=== PATIENT | male | born 1955 | race African-American/Black ===

== ENCOUNTER → 2017-03-17 | Outpatient (CLI) | payer BC, OTHER | LOC: CAT 09:24 | DX: K40.90 Unilateral inguinal hernia, without obstruction or gangrene, not specified as recurrent (principal) ==

== ENCOUNTER → 2020-01-31 | Outpatient (CLI) | payer BC, OTHER | LOC: LAB 08:35 | PROVIDERS: ATTEND Family Medicine | DX: R05 Cough (principal); Z20.828 Contact with and (suspected) exposure to other viral communicable diseases ==

== ENCOUNTER → 2020-04-28 | Outpatient (CLI) | payer BC, OTHER | LOC: LAB 08:50 | PROVIDERS: ATTEND Family Medicine | DX: U07.1 COVID-19 (principal) ==

== ENCOUNTER → 2020-05-14 | Outpatient (CLI) | payer BC, OTHER | LOC: LAB 07:22 | PROVIDERS: ATTEND Family Medicine | DX: U07.1 COVID-19 (principal) ==

== ENCOUNTER 2021-06-29 06:39 | Observation (INO) | payer BC, OTHER ==
[~2021-06-29] VITALS: Ht 180.3 cm; Wt 97.1 kg
[~2021-06-29 06:39] MED LIST: AMLODIPINE BESY10 MG PO; APPLE CIDER VI500 MG PO; ASA81BEC PO; ATORVASTATIN CA20 MG PO; CINNAMON500 MG PO; METOPROLOL SUCC50 MG PO; MULTI VITAMIN1 EACH PO; TURMERIC500 M2 PO; VITAMIN D3250 MC2 PO; ZOLPIDEM TARTRA10 MG PO
[2021-06-29 09:00] VITALS: BP 170/95
[2021-06-29] MEDS ORDERED: HYDROCODON-ACE1 EAC7 PO (11:30)
[2021-06-29 14:11] VITALS: BP 145/84
--- NOTE | 2021-06-29 14:34 | NUR ---
ASSUMED PT CARE FROM PACU AT 1405. PT IS ALERT & ORIENTED X4. PT HAS IV SITE ON R HAND. PT IS ON ROOM AIR. PT IS ACCUCHECK ACHS. PT IS STAND BY TO THE BATHROOM. FINISHED ADMISSION. PT HAS BANDAIDS X3 ON THE ABDOMEN C/D/I. PT ON THE BED, BED ON THE LOWEST POSITION, SIDE RAILS UP, CALL LIGHT WITHIN REACH. WILL CONTINUE TO MONITOR PT. FOLLOW POC.
[2021-06-29 19:08] VITALS: BP 144/85
--- NOTE | 2021-06-29 22:03 | NUR ---
ASSUMED CARE OF PT AT 1915. PT IS A&OX4. IS ON ROOM AIR. IS STABLE. REPORTED ABD PAIN 6/10 WITH MOVEMENT IN ABD THAT IS BEING MANAGED WITH PAIN MEDS & OTHER THERAPUETIC TECHIQUES INCLUDING REST. 4 LAPSITES WITH BANDAIDS. NO DRAINAGE NOTED. PT FOLLOWING ADB PRECAUTIONS. IS UP WITH STANDBY ASSIST, GB TO BATHROOM. FALL PRECAUTIONS & HOURLY ROUNDING CONTINUED THIS SHIFT. SCDS IN PLACE. IV FLUIDS INFUSING. LABS & VITALS REIVEWED. PT IS RESTING COMFORTABLY IN BED, WATCHING TV. CALL LIGHT WITHIN REACH. PT IS CONCERNED ABOUT USE OF INSULIN & ELEVATED BLOOD GLUCOSE LEVELS. EDUCATION PROVIDED REGARDING THE PURPOSE OF USING INSULIN IN THE HOSPITAL & HOLDING METFORMIN FOR OPERATIVE PURPOSES. PT UNDERSTOOD. STATED, "I'M READY TO GET OUT OF HERE, BUT I'M GLAD I STAYED BECAUSE OF MY BLOOD SUGAR USUALLY IS AROUND LOW 120S." WILL CONTINUE TO MONITOR. PT VOICED UNDERSTANDING OF EDUCATION.
--- NOTE | 2021-06-30 07:13 | NUR ---
PT WAS TRANSFER TO 4W (464) FROM 4S (442) AT APPROXIMATELY 0600. REPORT WAS CALLED TO RECIEVING NURSE. ALL BELONGINGS WERE GATHERED BY PT & TRANSPORTED WITH. PT WAS SETTLED IN THE ROOM & ORIENTATED TO UNIT & ROOM.
--- NOTE | 2021-06-30 07:38 | EKG ---
[address] [place] [employer] [place] [address] ELECTROCARDIOGRAM REPORT Name: REMI FISH Room #: 464-P [facility]..#: [id number] Admission: 06/29/21 Attend Phys: Joseph Zeng MD Discharge: Date of : 51 Report #: [id number] [facility] Test Date: 2021-06-29 Test Time: 08:25:12 Pat Name: REMI FISH Department: Room: 464 Gender: M Muffler Installer: GUILLERMO : 1955 Requested By: Joseph Zeng Order Number: [id number] MD: David Narvaez Measurements Intervals [place] Rate: 82 P: 55 IN: 143 QRS: 19 QRSD: 69 T: -29 QT: 468 QTc: 547 Interpretive Statements Sinus rhythm Abnormal R-wave progression, early transition Borderline T abnormalities, diffuse leads Prolonged QT interval No previous ECG available for comparison Electronically Signed On 06-30-2021 7:38:44 MANAGEMENT COORDINATOR by David Narvaez [email or web address] <ELECTRONICALLY SIGNED> By: David Narvaez MD, [facility] 06/30/21 0738 0825 0825 David Narvaez MD, FACC /EPI
[2021-06-30 08:00] VITALS: BP 149/86
--- NOTE | 2021-06-30 13:08 | NUR ---
1255 PT IV REMOVED WITHOUT DIFFICULTY, CATHETER INTACT; DISCHARGE PAPERS DISCUSSED AND SIGNED. QUESTIONS ANSWERED TO PT SATISFACTION. PT DISCHARGED PER ORDER. PT DC'D FROM FLOOR.
--- NOTE | 2021-06-30 14:02 | O ---
[facility] [place] [address] OPERATIVE REPORT Name: REMI FISH [facility] 464[facility]P [facility] [id number] Admission: 06/29/21 Attend Phys: Joseph Zeng MD Discharge: Date of : 51 Report #: [id number] THIS REPORT FOR: cc: Sebastián Stokes MD, Rene P. MD Chu, Peter Y. MD ~ cc: Sebastián Stokes MD DATE OF SERVICE: 06/29/2021 PREOPERATIVE DIAGNOSIS: Right inguinal hernia and umbilical hernia. POSTOPERATIVE DIAGNOSIS: Right inguinal hernia and umbilical hernia. PROCEDURES PERFORMED: 1. Repair of symptomatic right inguinal hernia with mesh. 2. Repair of umbilical hernia with mesh. ANESTHESIA: General. SURGEON: Joseph Zeng MD COMPLICATIONS: None. ESTIMATED BLOOD LOSS: 15 mL PROCEDURE NOTE: With the patient under general anesthesia, abdomen was prepped and draped in sterile fashion. Timeout was performed. IV antibiotic was given, and a Ponce was placed preoperatively. Transverse incision was made adjacent to the umbilicus and carried underneath the umbilicus. The anterior rectus sheath on the right side was identified. This was opened transversely. The muscle was spread. Posterior fascia was then palpated. Space between the posterior fascia and the muscle was bluntly dissected. A balloon trocar was placed through the same space. CO2 was placed. Under visualization, a 5 mm trocar was placed into the space between the muscle and the posterior fascia and going inferiorly using cautery and blunt dissection, the properitoneal space was opened up. The dissection was carried down to the pubic bone. There is a direct defect identified where the fatty tissue stuck in the wall. The properitoneal space was opened up across to the left side. It was also free laterally to the inferior epigastric vessel. The cord structure was isolated. A second 5 mm trocar was placed in the right lateral abdomen. There is a small indirect component with a sac over the cord. The sac was freed from the cord and reduced. Cord was skeletonized. The direct defect was then dissected free. The fat that is adhesed to the thin wall was freed. It was freed up and the hernia defect was then visualized. The direct defect measuring 2 cm was identified. Hemostasis was obtained. During the dissection, quite a bit of [address] [address] OPERATIVE REPORT Name: REMI FISH Room #: 464-P [facility] Miguelito Copeland#: [id number] Admission: 06/29/21 Attend Phys: Joseph Zeng MD Discharge: Date of : 51 Report #: [id number] aortic did tract into the abdominal cavity. The third 5 mm trocar was placed into the abdominal cavity under visualization and this helped to release the intra-abdominal air. A large 3DMax lightweight mesh was then placed through the 11 mm trocar. This was opened in the properitoneal space. This was then positioned covering the internal ring and also covering the direct defect well. The mesh was tucked underneath the pubic bone. Mesh was then tacked lateral superior with SorbaFix and then medially, inferiorly with SorbaFix to the Juan's ligament and then superomedially to the rectus muscle. The mesh seated well. The trocars were removed. CO2 was evacuated. The incision was then carried across the umbilicus. An umbilical hernia was identified. Peritoneum was pretty scarred to the skin. Peritoneum was free from the surrounding fascia defect. The peritoneum was then closed with 4-0 PDS. Properitoneal dissection was then carried out. The properitoneal space opened up well. A medium size Ventralex patch was then placed at the properitoneal space. This covered the defect well. The fascia defect was then closed with 0 Prolene in a horizontal mattress fashion x 3. Skin was irrigated. The suture incorporated the strap and the strap was then trimmed up on the fascial level. Skin was then closed with 5-0 PDS at the trocar sites. Steri-Strip and Band-Aids were used for dressing. The patient tolerated the procedure well. <ELECTRONICALLY SIGNED> By: Joseph Zeng MD 06/30/21 1402 37 56 Joseph Zeng MD /nt
[2021-06-30 15:34] VITALS: BP 149/86
== END 2021-06-30 15:35 | disposition home or self-care (01) ==
LOC: OR 06:39 → 4S 13:45 → OR 13:46 → 4S 13:46 → OR 17:22 → 4W 06-30 06:44
PROVIDERS: ADMIT Surgery; ATTEND Surgery
DX: K42.9 Umbilical hernia without obstruction or gangrene (principal); K40.90 Unilateral inguinal hernia, without obstruction or gangrene, not specified as recurrent; Z20.822 Contact with and (suspected) exposure to COVID-19; Z79.899 Other long term (current) drug therapy
CPT/HCPCS: 50010; 50101; 50130; 50411; 50455; 50507; 50555; 50848; 52265; 53065; 53307; 55245; 56525; 56526; 56719; 58574; 70005